=== PATIENT | female | born 1980 | race Caucasian/White ===

== ENCOUNTER 2017-11-26 08:22 | Emergency (ER) | payer OTHER ==
[~2017-11-26] VITALS: Ht 162.6 cm; Wt 68.0 kg
[~2017-11-26 08:22] MED LIST: ACETAMINOPHEN-1 EAC1 PO; HYDROCODONE-AP1 EAC6 PO; MEDROLDOSEPACK PO; PRISTIQ50 M1 PO; ROBAXIN 750 MG750 M1 PO; ROBAXIN500 MG PO
[2017-11-26] MEDS ORDERED: LAMICTAL100 MG PO (08:34)
[2017-11-26] MEDS ORDERED: WELLBUTRIN 100100 MG PO (08:34)
[2017-11-26] MEDS ORDERED: EFFEXOR 5050 MG/1 T1 PO (08:34)
[2017-11-26 09:25] LABS: HEMATOCRIT 41.1 % (37.0-47.0); HEMOGLOBIN 14.1 gm/dL (12.0-15.0); MCH 29.5 pg (26.0-34.0); MCHC 34.4 g/dL (28.0-37.0); MCV 85.9 fL (80.0-100.0); MPV 7.8 fl. (7.2-11.1); NUCLEATED RBCS 0 /100WBC; PLATELET COUNT* 147 thou/uL (150-400); RBC 4.78 mil/uL (4.20-5.00); RDW-CV 13.4 % (10.5-14.5); WBC 3.2 thou/uL (4.0-11.0)
[2017-11-26 09:32] LABS: CALCIUM 8.3 mg/dL (8.5-10.1); CREATININE 0.9 mg/dL (0.6-1.3); POTASSIUM 3.8 mmol/L (3.5-5.1)
[2017-11-26 09:42] LABS: TOTAL BILIRUBIN 0.2 mg/dL (<0.1-1.0); TOTAL PROTEIN 6.7 g/dL (6.4-8.2)
[2017-11-26 10:04] LABS: ABSOLUTE LYMPHOCYTES 0.2 thou/uL (0.8-5.3); ABSOLUTE MONOCYTES 0.6 thou/uL (0.0-1.2); ABSOLUTE NEUTROPHILS 2.4 thou/uL (1.6-8.1); PLATELET ESTIMATE ADEQUATE
[2017-11-26 10:26] LABS: URINE BLOOD TRACE (Negative); URINE CLARITY CLEAR; URINE COLOR DARK YELLOW; URINE GLUCOSE-RANDOM NEGATIVE (Negative); URINE LEUKOCYTES-REFLEX NEGATIVE (Negative); URINE NITRITE-REFLEX NEGATIVE (Negative); URINE PROTEIN 2+ (Negative); URINE SPECIFIC GRAVITY >= 1.030 (1.005-1.030)
[2017-11-26 10:27] LABS: URINE BILIRUBIN 2+ (Negative); URINE KETONES 3+ (Negative)
[2017-11-26 10:36] LABS: ICTOTEST (BILI CONFIRMATORY) Negative (Negative)
[2017-11-26 10:51] LABS: BACTERIA-REFLEX >30 Many /HPF (None Seen); CRYSTALS None Seen /LPF (None Seen); HYALINE CASTS 0-3 Few /LPF (None Seen); MUCUS >6 Heavy strn/LPF (None Seen); SQUAMOUS 4-10 Moderate /LPF (0-3); URINE WBC-REFLEX 0-5 Rare /HPF (0-5)
[2017-11-26 14:18] VITALS: BP 119/80
== END 2017-11-26 14:19 | disposition home or self-care (01) ==
LOC: M.ERS 08:22
PROVIDERS: Personal Emergency Response Attendant
DX: E86.0 Dehydration (principal); B34.9 Viral infection, unspecified; Z87.442 Personal history of urinary calculi

== ENCOUNTER 2017-12-06 08:46 | Emergency (ER) | payer OTHER ==
[~2017-12-06] VITALS: Ht 162.6 cm; Wt 63.5 kg
[~2017-12-06 08:46] MED LIST changes: +EFFEXOR 5050 MG/1 T1 PO; +LAMICTAL100 MG PO; +WELLBUTRIN 100100 MG PO
[2017-12-06] MEDS ORDERED: TRAMADOL 50 MG50 MG PO (09:37)
[2017-12-06 09:49] VITALS: BP 119/81
== END 2017-12-06 09:49 | disposition home or self-care (01) ==
LOC: M.ERS 08:46
DX: B34.9 Viral infection, unspecified (principal); Z87.442 Personal history of urinary calculi

== ENCOUNTER 2019-06-12 19:08 | Emergency (ER) | payer OTHER ==
[~2019-06-12] VITALS: Ht 162.6 cm; Wt 68.0 kg
[~2019-06-12 19:08] MED LIST changes: +TRAMADOL 50 MG50 MG PO
[2019-06-12] MEDS ORDERED: RITALIN10 MG PO (19:26)
[2019-06-12 19:46] LABS: ABSOLUTE BASOPHILS 0.1 thou/uL (0.0-0.2); ABSOLUTE EOSINOPHILS 0.1 thou/uL (0.0-0.7); ABSOLUTE MONOCYTES 0.7 thou/uL (0.0-1.2); ABSOLUTE NEUTROPHILS 5.8 thou/uL (1.6-8.1); BASOPHILS 0.9 %; EOSINOPHILS 0.7 %; HEMATOCRIT 41.9 % (37.0-47.0); MCH 29.8 pg (26.0-34.0); MCHC 33.3 g/dL (28.0-37.0); MCV 89.4 fL (80.0-100.0); MONOCYTES 9.3 %; MPV 7.7 fl. (7.2-11.1); NUCLEATED RBCS 0 /100WBC; PLATELET COUNT* 230 thou/uL (150-400); POLYS 76.1 %; RBC 4.69 mil/uL (4.20-5.00); RDW-CV 13.8 % (10.5-14.5); WBC 7.6 thou/uL (4.0-11.0)
[2019-06-12 19:54] LABS: CALCIUM 9.5 mg/dL (8.5-10.1); POTASSIUM 3.8 mmol/L (3.5-5.1)
[2019-06-12 19:58] LABS: ALBUMIN 3.3 g/dL (3.4-5.0); TOTAL BILIRUBIN 0.5 mg/dL (<0.1-1.0); TOTAL PROTEIN 7.1 g/dL (6.4-8.2)
[2019-06-12 21:19] LABS: URINE BILIRUBIN NEGATIVE (Negative); URINE BLOOD NEGATIVE (Negative); URINE CLARITY CLEAR; URINE COLOR YELLOW; URINE GLUCOSE-RANDOM NEGATIVE (Negative); URINE KETONES TRACE (Negative); URINE LEUKOCYTES-REFLEX NEGATIVE (Negative); URINE NITRITE-REFLEX NEGATIVE (Negative); URINE PROTEIN NEGATIVE (Negative); URINE UROBILINOGEN 0.2 E.U./dl (0.2-1.0)
[2019-06-12 21:25] LABS: AMP/METHAMP Negative (Negative); BARBITURATES Negative (Negative); BENZODIAZEPINES Negative (Negative); COCAINE Negative (Negative); METHADONE Negative (Negative); OPIATES Negative (Negative); PCP Negative (Negative); THC POSITIVE (Negative)
[2019-06-13 01:52] VITALS: BP 133/68
[2019-06-13] MEDS ORDERED: HYDROCODON-ACE1 EAC8 PO (01:54)
== END 2019-06-13 01:59 | disposition home or self-care (01) ==
LOC: M.ERS 19:08
PROVIDERS: Emergency Medicine
DX: R14.1 Gas pain (principal); Z87.442 Personal history of urinary calculi; Z91.013 Allergy to seafood

== ENCOUNTER 2019-10-18 20:18 | Inpatient (IN) | payer OTHER ==
[~2019-10-18] VITALS: Ht 162.6 cm; Wt 64.9 kg
--- NOTE | ~2019-10-18 | PROC ---
[facility] [address] [place] [address] PROCEDURE REPORT Name: BOO VÁZQUEZ Room: [address] IN M.R.#: [id number] Admission: 10/18/19 Attend Phys: Jam Delgado MD Discharge: 10/22/19 Date of : 76 Report #: [id number] THIS REPORT FOR: //name// For GI report, please see the Provation report in Perceptive 7 content. By: 0643Medical Records Staff JEREMIE /VENANCIO
[~2019-10-18 20:18] MED LIST changes: +HYDROCODON-ACE1 EAC8 PO; +RITALIN10 MG PO
[2019-10-18 20:21] VITALS: BP 141/66
[2019-10-18 21:09] LABS: ABSOLUTE BASOPHILS 0.1 thou/uL (0.0-0.2); ABSOLUTE EOSINOPHILS 0.2 thou/uL (0.0-0.7); ABSOLUTE LYMPHOCYTES 1.3 thou/uL (0.8-5.3); ABSOLUTE MONOCYTES 0.7 thou/uL (0.0-1.2); BASOPHILS 1.3 %; EOSINOPHILS 4.1 %; HEMOGLOBIN 13.6 gm/dL (12.0-15.0); LYMPHOCYTES 24.6 %; MCH 29.8 pg (26.0-34.0); MCHC 33.3 g/dL (28.0-37.0); MCV 89.6 fL (80.0-100.0); MONOCYTES 13.5 %; NUCLEATED RBCS 0 /100WBC; PLATELET COUNT* 242 thou/uL (150-400); POLYS 56.5 %; RBC 4.57 mil/uL (4.20-5.00); RDW-CV 13.6 % (10.5-14.5); WBC 5.4 thou/uL (4.0-11.0)
[2019-10-18 21:14] LABS: CALCIUM 8.4 mg/dL (8.5-10.1); POTASSIUM 3.8 mmol/L (3.5-5.1)
[2019-10-18 21:18] LABS: ALBUMIN 2.8 g/dL (3.4-5.0); TOTAL BILIRUBIN 0.2 mg/dL (<0.1-1.0); TOTAL PROTEIN 6.5 g/dL (6.4-8.2)
[2019-10-18 21:19] LABS: PROTIME 9.9 Seconds (9.20-11.50)
[2019-10-18 21:40] LABS: URINE BILIRUBIN NEGATIVE (Negative); URINE BLOOD NEGATIVE (Negative); URINE CLARITY CLEAR; URINE COLOR YELLOW; URINE GLUCOSE-RANDOM NEGATIVE (Negative); URINE KETONES NEGATIVE (Negative); URINE LEUKOCYTES-REFLEX NEGATIVE (Negative); URINE NITRITE-REFLEX NEGATIVE (Negative); URINE PROTEIN NEGATIVE (Negative); URINE SPECIFIC GRAVITY >= 1.030 (1.005-1.030); URINE UROBILINOGEN 0.2 E.U./dl (0.2-1.0)
[2019-10-18 21:50] LABS: AMP/METHAMP Negative (Negative); BARBITURATES Negative (Negative); BENZODIAZEPINES Negative (Negative); COCAINE Negative (Negative); METHADONE Negative (Negative); OPIATES Negative (Negative); PCP Negative (Negative); THC POSITIVE (Negative)
[2019-10-19 00:20] VITALS: BP 111/75
[2019-10-19 00:32] VITALS: BP 116/76
[2019-10-19 08:00] VITALS: BP 122/80
[2019-10-19] MEDS ORDERED: VENLAFAXINE HC225 MG PO (08:15)
[2019-10-19 12:04] VITALS: BP 113/69
--- NOTE | 2019-10-19 15:38 | EKG ---
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
[2019-10-19 16:26] VITALS: BP 121/69
[2019-10-19 19:45] VITALS: BP 122/81
[2019-10-20] VITALS: BP 107/71
[2019-10-20 03:52] VITALS: BP 110/64
[2019-10-20 04:55] LABS: HEMATOCRIT 39.9 % (37.0-47.0); HEMOGLOBIN 13.1 gm/dL (12.0-15.0); MCH 29.5 pg (26.0-34.0); MCHC 32.8 g/dL (28.0-37.0); MCV 90.1 fL (80.0-100.0); MPV 7.9 fl. (7.2-11.1); RBC 4.43 mil/uL (4.20-5.00); RDW-CV 13.3 % (10.5-14.5); WBC 3.6 thou/uL (4.0-11.0)
[2019-10-20 05:19] LABS: ALBUMIN 2.4 g/dL (3.4-5.0); CALCIUM 8.2 mg/dL (8.5-10.1); CREATININE 0.8 mg/dL (0.6-1.3); MAGNESIUM 1.6 mg/dL (1.8-2.4); POTASSIUM 3.9 mmol/L (3.5-5.1); TOTAL BILIRUBIN 0.4 mg/dL (<0.1-1.0); TOTAL PROTEIN 5.9 g/dL (6.4-8.2)
[2019-10-20 07:00] VITALS: BP 113/69
[2019-10-20 11:33] VITALS: BP 116/65
[2019-10-20 16:06] VITALS: BP 113/64
[2019-10-20 20:00] VITALS: BP 116/68
[2019-10-21] VITALS: BP 102/53
[2019-10-21 04:00] VITALS: BP 98/62
[2019-10-21 07:00] VITALS: BP 115/60
[2019-10-21 08:08] VITALS: BP 115/60
[2019-10-21 16:00] VITALS: BP 133/72
[2019-10-21 19:45] VITALS: BP 121/71
[2019-10-22 08:00] VITALS: BP 132/78
[2019-10-22] MEDS ORDERED: PROTONIX40 M1 PO (08:34)
[2019-10-22] MEDS ORDERED: ZOFRAN ODT4 MG SUBLING (08:34)
[2019-10-22 10:59] VITALS: BP 132/78
--- NOTE | 2019-10-23 14:07 | PATH ---
[facility] [address] [place] [address] PATHOLOGY RPT PROCEDURE Name: ALYSSIA BORRERO Room: [address] IN M.R.#: [id number] Admission: 10/18/19 Date of : 76 Discharge: 10/22/19 Report #: [id number] Path Case #: [id number] [facility] Accession Number: [id number] . 01 Material submitted: . duodenum - BIOPSY OF DUODENUM RULE OUT CELIAC . 01 Clinical history: . r/o celiac . 02 Diagnosis: Biopsy of duodenum: - Normal small intestinal/duodenal mucosa. . (SHAQUILLE:mml; 10/23/2019) QL 10/23/2019 1050 Local . 02 Electronically signed: . Moo Ontiveros MD, Pathologist NPI- [id number] . 01 Gross description: . The specimen is received in formalin, labeled "Alyssia Borrero, biopsy of duodenum" and consists of 5 fragments of pink-bautista tissue measuring between 0.1 x 0.1 cm and 0.3 x 0.2 cm which are entirely submitted in A1. (SDY; 10/22/2019) SYU/SYU 10/22/2019 1113 Local . 02 Pathologist provided ICD-10: R10.9 . 02 CPT . 061890 Specimen Comment: A courtesy copy of this report has been sent to [phone], [phone] Specimen Comment: [phone], Specimen Comment: Report sent to , and Performed at: 01 [facility] [address], [place], [place] [id number] MD Emeka Parikh MD Phone: [phone] Performed at: [address] [facility] [address] [place], [place] [id number] MD Moo Ontiveros MD Phone: [phone]
--- NOTE | 2019-10-23 14:27 | CON ---
[address] [address] CONSULTATION Name: BOO VÁZQUEZ Room: [address] IN M.R.#: [id number] Admission: 10/18/19 Attend Phys: Jam Delgado MD Discharge: 10/22/19 Date of : 76 Report #: [id number] THIS REPORT FOR: //name// CC: Jam Espinal MD DICTATED BY: Ana Gonzalez [facility] DATE OF SERVICE: 10/20/2019 Please note at the time of this dictation, the patient was seen and physically examined by myself. REASON FOR CONSULTATION: Ongoing gas, bloating, belching, abdominal pain, nausea and vomiting. HISTORY OF PRESENT ILLNESS: This is a 39-year-old female, who presented to the Emergency Room with nausea and vomiting. She has not had any vomiting up until this episode, which was significant on Sunday and that she was unable to keep anything down, prompting her to be seen in the Emergency Room on Sunday. The patient has been having these ongoing issues of abdominal pain, basically from her shoulders down to her pelvic area for greater than 6 months. She has had excessive flatulence, belching, gas, bloating. She has been getting full very quickly. She states that she does overeat that will make her symptoms worse. It was also noted on drug screen that she was positive for THC. The patient underwent a GI workup back in June at [facility] with Dr. Chino as an outpatient for an EGD. Her upper scope was completely normal. He did do biopsies, but those were not available at the time of this dictation and will request those. She was put on Prilosec for 1 month and she states it did not help any of her symptoms at all. She was supposed to have a gastric emptying test 2 weeks after her EGD in June. It is unclear if she ever got that done as well as follow up with the GI doctor as well. She did go back and see her PCP. Her PCP ordered a bunch of labs and said that she had some labs that were abnormal. She could not tell me what they were and it was recommended that she follow up with GI and was going to make recommendations to see a head waitress. She has not seen a head waitress as of yet. She does state her bowels move normal on a daily basis. They are soft and formed. There is no diarrhea, and no pain noted with having a bowel movement. She has had no weight loss around all of these symptoms either. She has never had a colonoscopy done. ALLERGIES: SHELLFISH. MEDICATIONS FROM HOME: Include Effexor, Lamictal and Wellbutrin. PAST MEDICAL HISTORY: Some [place] [address] CONSULTATION Name: BOO VÁZQUEZ Room: [address] IN M.R.#: [id number] Admission: 10/18/19 Attend Phys: Jam Delgado MD Discharge: 10/22/19 Date of : 76 Report #: [id number] PAST SURGICAL HISTORY: Negative. FAMILY HISTORY: Mother has Crohn's disease. Maternal grandmother has RA and fibromyalgia. Maternal and paternal grandmothers have had breast cancer as well. SOCIAL HISTORY: Alcohol use socially, positive for THC and denies any tobacco use. REVIEW OF SYSTEMS: Twelve-point review of systems is essentially negative except what is mentioned in the HPI. PHYSICAL EXAMINATION: VITAL SIGNS: Temperature 36.6, pulse 77, respirations 18, blood pressure 113/66. HEART: Regular rate and rhythm. LUNGS: Clear. ABDOMEN: Soft, positive bowel sounds in all 4 quadrants with some generalized tenderness, more so in the epigastric region noted to palpation. LABORATORY DATA: Hemoglobin of 13.1, white count of 3.6, platelets 202. GFR of 79. LFTs are completely normal. CT shows a 2.2 x 2.3 cm soft tissue mass in the gastric antrum, otherwise, negative. IMPRESSION: 1. Nausea and vomiting, improved. 2. Abdominal pain, recurrent. 3. Early satiety. 4. Belching, flatulence and bloating. 5. Positive for THC, consider cyclic vomiting syndrome and differential. 6. Family history of Crohn's in her mother and rheumatoid arthritis and fibromyalgia in maternal grandmother as well as breast cancer in both maternal and paternal grandmothers. PLAN: 1. We will obtain path results from her last EGD. They did not come with it. 2. See if GET was performed at [facility]. 3. Repeat EGD tomorrow for her abnormality on her CT. 4. Labs, ESR, CRP, GAUTAM. 5. We will await above results and further recommendations to come when Dr. Lee sees the patient later today. [address] [address] CONSULTATION Name: BOO VÁZQUEZ Room: [address] IN M.R.#: [id number] Admission: 10/18/19 Attend Phys: Jam Delgado MD Discharge: 10/22/19 Date of : 76 Report #: [id number] Thank you for allowing us to participate in this patient's care. Please do not hesitate to call with any questions in regard to this consult. <ELECTRONICALLY SIGNED> By: Sho Lee MD 10/23/19 1427 1203 [id number] Lee MD /nt
== END 2019-10-22 14:15 | disposition home or self-care (01) | DRG 384 ==
LOC: M.ERS 20:18 → M.2W 23:22 → M.TBA-ER 23:22 → M.3W 23:22 → M.ORTHSURG 10-19 00:17 → M.2W 10-19 10:18 → M.3W 10-21 12:40
PROVIDERS: Internal Medicine; Personal Emergency Response Attendant; ADMIT Internal Medicine
PROC: 0DB98ZX Excision of Duodenum, Via Natural or Artificial Opening Endoscopic, Diagnostic (ICD-10-PCS; principal; 2019-10-21)
DX: K26.9 Duodenal ulcer, unspecified as acute or chronic, without hemorrhage or perforation (principal); K55.1 Chronic vascular disorders of intestine; R65.10 Systemic inflammatory response syndrome (SIRS) of non-infectious origin without acute organ dysfunction; E44.0 Moderate protein-calorie malnutrition; F12.90 Cannabis use, unspecified, uncomplicated; F31.9 Bipolar disorder, unspecified; K29.80 Duodenitis without bleeding; J45.909 Unspecified asthma, uncomplicated; R68.81 Early satiety; K31.89 Other diseases of stomach and duodenum; K59.00 Constipation, unspecified; Z72.89 Other problems related to lifestyle; Z79.899 Other long term (current) drug therapy; Z91.013 Allergy to seafood; Z87.442 Personal history of urinary calculi; Z87.891 Personal history of nicotine dependence; Z82.61 Family history of arthritis; Z80.3 Family history of malignant neoplasm of breast